=== PATIENT | female | born 1945 | race Caucasian/White ===

== ENCOUNTER → 2019-02-20 | Outpatient (CLI) | payer MEDICARE, OTHER ==
[~2019-02-20] MED LIST: CIPROFLOXACIN500 M3 PO; FISH OIL 1,0001 EAC5; FLAGYL500 MG PO; GLUMETZA1000 PO; LEVOTHYROXIN0.125 M1 PO; NORVASC 5 MG TAB5 MG PO; OMEPRAZOLE 20 M20 MG PO; VITCB500GO PO
[2019-02-20 09:40] LABS: ABSOLUTE BASOPHILS 0.1 thou/uL (0.0-0.2); ABSOLUTE EOSINOPHILS 0.1 thou/uL (0.0-0.7); ABSOLUTE LYMPHOCYTES 1.4 thou/uL (0.8-5.3); ABSOLUTE MONOCYTES 0.6 thou/uL (0.0-1.2); ABSOLUTE NEUTROPHILS 3.1 thou/uL (1.6-8.1); EOSINOPHILS 2.2 %; HEMATOCRIT 38.7 % (37.0-47.0); HEMOGLOBIN 12.5 gm/dL (12.0-15.0); LYMPHOCYTES 26.1 %; MCH 28.9 pg (26.0-34.0); MCHC 32.2 g/dL (28.0-37.0); MCV 89.6 fL (80.0-100.0); MONOCYTES 12.2 %; MPV 7.9 fl. (7.2-11.1); NUCLEATED RBCS 0 /100WBC; PLATELET COUNT* 266 thou/uL (150-400); POLYS 58.5 %; RBC 4.32 mil/uL (4.20-5.00); WBC 5.3 thou/uL (4.0-11.0)
[2019-02-20 10:45] LABS: ESR (SEDRATE) 10 mm/hr (0-30)
== END ==
LOC: M.RAD 09:16
PROVIDERS: Internal Medicine Gastroenterology
DX: R13.12 Dysphagia, oropharyngeal phase (principal); R05 Cough; D64.9 Anemia, unspecified

== ENCOUNTER → 2019-03-15 | Outpatient (CLI) | payer MEDICARE, OTHER | LOC: M.RAD 08:49 | DX: K44.9 Diaphragmatic hernia without obstruction or gangrene (principal); R13.10 Dysphagia, unspecified ==